=== PATIENT | female | born 1960 | race African-American/Black ===

== ENCOUNTER 2022-05-06 21:21 | Inpatient (IN) | payer MEDICARE, OTHER ==
[~2022-05-06] VITALS: Ht 170.2 cm; Wt 78.0 kg
[2022-05-06 22:07] LABS: BASOPHILS # (AUTO) 0.1 (0.0-0.1); BASOPHILS % 0.8 % (0.0-1.0); EOSINOPHILS # (AUTO) 0.2 (0.0-0.4); EOSINOPHILS % 1.9 % (0.0-6.0); HEMATOCRIT 26.4 % (34.2-44.1); HEMOGLOBIN 8.2 g/dL (12.0-16.0); LYMPHOCYTES # (AUTO) 1.9 (1.0-3.2); LYMPHOCYTES % 22.7 % (18.0-39.1); MEAN CORPUSCULAR HEMOGLOBIN 26.5 pg (28-32); MEAN CORPUSCULAR HGB CONC 31.1 g/dL (31-35); MEAN CORPUSCULAR VOLUME 85.2 fL (81-99); MONOCYTES # (AUTO) 0.7 (0.2-0.8); MONOCYTES % 8.6 % (4.4-11.3); NEUTROPHILS # (AUTO) 5.4 (2.1-6.9); NEUTROPHILS % 64.1 % (38.7-80.0); PLATELET COUNT 295 x10e3/uL (140-360); RED CELL DISTRIBUTION WIDTH 15.3 % (11.7-14.4)
[2022-05-06 22:25] LABS: ALBUMIN 2.7 g/dL (3.5-5.0); ALBUMIN/GLOBULIN RATIO 0.7 (0.8-2.0); ANION GAP 16.3 mmol/L (8-16); CALCIUM 9.9 mg/dL (8.4-10.2); CREATININE, SERUM 0.48 mg/dL (0.57-1.11); POTASSIUM 3.3 mmol/L (3.5-5.1)
[2022-05-06 23:23] LABS: CLARITY,URINE SL CLOUDY (CLEAR); COLOR,URINE YELLOW (YELLOW); KETONES,URINE NEGATIVE (NEGATIVE); LEUKOCYTE ESTERASE ,URINE TRACE (NEGATIVE); NITRITE,URINE POSITIVE (NEGATIVE); PROTEIN,URINE DIPSTICK NEGATIVE (NEGATIVE); URINE UROBILINOGEN 1 mg/dL (0.2 - 1)
[2022-05-06 23:27] LABS: BACTERIA,URINE MODERATE /HPF; EPITHELIAL CELLS,URINE FEW /LPF; RBC,URINE 0-5 /HPF (0-5)
[2022-05-07] VITALS (9 sets, daily range): BP systolic 125–186; BP diastolic 65–89
[2022-05-07] MEDS: SODIUM CHLORIDE 0.9% 1000ML 1,000 ML IV SCH ×3 (01:25→19:30)
[2022-05-07] MEDS ORDERED: OXYBUTYNIN CHLOR5 M1 PO (03:15)
[2022-05-07] MEDS ORDERED: COQ-10100 MG (03:15)
[2022-05-07] MEDS ORDERED: VITAMIN C500 MG PO (03:15)
[2022-05-07] MEDS ORDERED: VASCULERA630 MG (03:15)
[2022-05-07] MEDS ORDERED: B12 ACTIVE1000 MCG IM (03:15)
[2022-05-07] MEDS ORDERED: ELIQUIS2.5 MG PO (03:15)
[2022-05-07] MEDS ORDERED: BACLOFEN10 MG PO (03:15)
[2022-05-07] MEDS ORDERED: PROTONIX20 MG PO (03:15)
[2022-05-07] MEDS ORDERED: VITAMIN B COMP1 EAC1 (03:15)
[2022-05-07] MEDS ORDERED: ZOLOFT25 MG (03:15)
[2022-05-07] MEDS ORDERED: CORTEF10 MG PO (03:15)
[2022-05-07 07:18] LABS: BASOPHILS # (AUTO) 0.1 (0.0-0.1); BASOPHILS % 0.6 % (0.0-1.0); EOSINOPHILS # (AUTO) 0.2 (0.0-0.4); LYMPHOCYTES # (AUTO) 2.6 (1.0-3.2); LYMPHOCYTES % 32.2 % (18.0-39.1); MEAN CORPUSCULAR HEMOGLOBIN 26.1 pg (28-32); MEAN CORPUSCULAR HGB CONC 30.8 g/dL (31-35); MONOCYTES # (AUTO) 0.8 (0.2-0.8); MONOCYTES % 9.3 % (4.4-11.3); NEUTROPHILS # (AUTO) 4.4 (2.1-6.9); NEUTROPHILS % 54.1 % (38.7-80.0); PLATELET COUNT 568 x10e3/uL (140-360); RED BLOOD COUNT 3.06 x10e6/uL (3.6-5.1); RED CELL DISTRIBUTION WIDTH 15.3 % (11.7-14.4)
[2022-05-07 07:40] LABS: ANION GAP 12.7 mmol/L (8-16); CALCIUM 9.1 mg/dL (8.4-10.2); CREATININE, SERUM 0.43 mg/dL (0.57-1.11)
[2022-05-07 07:49] LABS: POTASSIUM 2.7 mmol/L (3.5-5.1)
[2022-05-07 10:11] LABS: INR 1.05; PROTHROMBIN TIME 14.6 seconds (11.9-14.5)
[2022-05-07] MEDS ORDERED: POTASSIUM CHLORIDE 20 MEQ TAB CR PO ONE (10:45)
[2022-05-07] MEDS ORDERED: POTASSIUM CHLORIDE 20MEQ/100ML 100 ML IV ONE (10:45)
[2022-05-07] MEDS ORDERED: SODIUM CHLORIDE 0.9% 250ML 250 ML ONE ×2 (10:51→16:11)
[2022-05-07] MEDS ORDERED: LIDOCAINE HCL 1% LOCAL INJ 20 ML VIAL ONE (16:03)
[2022-05-07] MEDS ORDERED: IOPAMIDOL 300MG/ML 100 ML INFUS..BTL IV ONE (16:04)
[2022-05-07] MEDS: ACETAMINOPHEN 325 MG TAB PO PRN (17:47)
[2022-05-07] MEDS: OXYBUTYNIN CHLORIDE XL 5 MG TAB PO SCH (21:24)
[2022-05-07] MEDS: BACLOFEN 10 MG TAB PO SCH (21:25)
[2022-05-08 00:40] VITALS: BP 160/77
[2022-05-08] MEDS: ACETAMINOPHEN 325 MG TAB PO PRN (03:29)
[2022-05-08] MEDS: SODIUM CHLORIDE 0.9% 1000ML 1,000 ML IV SCH ×2 (05:14→11:22)
[2022-05-08 05:27] VITALS: BP 132/73
[2022-05-08 08:09] VITALS: BP 156/82
[2022-05-08] MEDS ORDERED: SERTRALINE HCL 50 MG TAB PO SCH (09:00)
[2022-05-08] MEDS ORDERED: HYDROCORTISONE 10 MG TAB PO SCH (09:00)
[2022-05-08] MEDS ORDERED: ASCORBIC ACID 500 MG TAB PO SCH (09:00)
[2022-05-08] MEDS ORDERED: NON-FORMULARY MEDICATION (Ubidecarenone (Coq-10) 200 MG) PO SCH (09:00)
[2022-05-08] MEDS ORDERED: PANTOPRAZOLE SOD 40 MG TABEC PO SCH (09:00)
[2022-05-08] MEDS ORDERED: APIXAB 2.5 MG TABLET PO SCH (09:00)
[2022-05-08] MEDS: BACLOFEN 10 MG TAB PO SCH ×2 (10:01→12:01)
[2022-05-08] MEDS: OXYBUTYNIN CHLORIDE XL 5 MG TAB PO SCH (10:02)
[2022-05-08 10:48] VITALS: BP 156/82
[2022-05-08 12:08] VITALS: BP 126/64
[2022-05-08 16:25] VITALS: BP 160/79
== END 2022-05-08 16:27 | disposition home or self-care (01) | DRG 698 ==
LOC: ER 21:42 → ERHOLD 23:26 → MED/SURG2 05-07 01:21 → OBSVTOIN 05-08 09:50
PROVIDERS: ADMIT Urology; ATTEND Urology
PROC: 0T9130Z Drainage of Left Kidney with Drainage Device, Percutaneous Approach (ICD-10-PCS; principal; 2022-05-07)
DX: N99.528 Other complication of incontinent external stoma of urinary tract (principal); G82.50 Quadriplegia, unspecified; N13.2 Hydronephrosis with renal and ureteral calculous obstruction; Z86.718 Personal history of other venous thrombosis and embolism; E03.9 Hypothyroidism, unspecified; Q76.49 Other congenital malformations of spine, not associated with scoliosis; Y83.8 Other surgical procedures as the cause of abnormal reaction of the patient, or of later complication, without mention of misadventure at the time of the procedure
CPT/HCPCS: 36415; 50433; 74176; 74425; 74470; 80048; 80053; 81001; 85025; 85610; 87070; 87086; 87186; 87205; 94799; 96361; 99284; G0378; J0696; J2001; J3480; J7030; J7050; Q9967